=== PATIENT | female | born 1950 | race Caucasian/White ===

== ENCOUNTER → 2019-02-07 | Day surgery (SDC) | payer MEDICARE, OTHER | LOC: MSO 08:15 → EDSTATUS 10:21 → MSO 10:23 | DX: H25.811 Combined forms of age-related cataract, right eye (principal); K21.9 Gastro-esophageal reflux disease without esophagitis; K22.70 Barrett's esophagus without dysplasia; Z79.899 Other long term (current) drug therapy; Z88.1 Allergy status to other antibiotic agents; Z88.5 Allergy status to narcotic agent; Z88.0 Allergy status to penicillin; Z98.51 Tubal ligation status; G89.29 Other chronic pain | CPT/HCPCS: 00142; J0171; J2250; V2632 ==

== ENCOUNTER → 2019-03-14 | Day surgery (SDC) | payer MEDICARE, OTHER | LOC: MSO 07:17 | DX: H25.812 Combined forms of age-related cataract, left eye (principal); K21.9 Gastro-esophageal reflux disease without esophagitis; K22.70 Barrett's esophagus without dysplasia; Z88.1 Allergy status to other antibiotic agents; Z88.0 Allergy status to penicillin; Z88.8 Allergy status to other drugs, medicaments and biological substances; Z91.040 Latex allergy status; Z91.048 Other nonmedicinal substance allergy status; Z90.710 Acquired absence of both cervix and uterus | CPT/HCPCS: J0171; J2250; J2405 ==